=== PATIENT | female | born 1990 | race Hispanic/Latino ===

== ENCOUNTER 2016-12-22 21:48 | Emergency (ER) | payer OTHER ==
[2016-12-22 22:26] VITALS: BP 151/75; PULSE 74; RESP 16; TEMP 98; O2SAT 99
--- NOTE | 2016-12-22 22:31 | ED PDOC ---
Lower Extremity Pain/Injury Time Seen by Provider: 12/22/16 22:26 Chief Complaint (Nursing): Lower Extremity Problem/Injury Chief Complaint (Provider): right foot and ankle pain History Per: Patient Additional Complaint(s): 26-year-old female presents with pain to right foot and ankle status post injuring while playing soccer earlier today. Pain is worse with weight bearing. Patient took Aleve which helped somewhat with pain. No associated numbness or tingling to affected area. Past Medical History Reviewed: Historical Data, Nursing Documentation, Vital Signs Vital Signs: Last Vital Signs Temp 98.0 F 12/22/16 22:24 Pulse 74 12/22/16 22:24 Resp 16 12/22/16 22:24 BP 151/75 H 12/22/16 22:24 Pulse Ox 99 12/22/16 22:24 - Medical History PMH: No Chronic Diseases - Surgical History Surgical History: No Surg Hx - Family History Family History: States: No Known Family Hx - Living Arrangements Living Arrangements: With Friends/Others - Social History Current smoker - smoking cessation education provided: No Alcohol: Social Drugs: Denies - Allergies Allergies/Adverse Reactions: Allergies Allergy/AdvReac Type Severity Reaction Status Date / Time No Known Allergies Allergy Verified 12/22/16 22:22 Wells Criteria for PE - Wells Criteria for Pulmonary Embolism Clinical Signs and Symptoms of DVT: No P.E is #1 Diagnosis, or Equally Likely: No Heart Rate >100: No Immobilization at least 3 days;Surgery previous 4 weeks: No Previous, objectively diagnosed PE or DVT: No Hemoptysis: No Malignancy w/treatment within 6 months, or palliative: No Total Score: 0 Review of Systems ROS Statement: Except As Marked, All Systems Reviewed And Found Negative Musculoskeletal: Positive for: Foot Pain (right foot and ankle injury) Physical Exam - Reviewed Nursing Documentation Reviewed: Yes Vital Signs Reviewed: Yes - Physical Exam Appears: Positive for: Well, Non-toxic, No Acute Distress Skin: Negative for: Rash Eye Exam: Positive for: Normal appearance Extremity: Positive for: Other (Moderate swelling and tenderness right lateral malleolus, tenderness to left heel with mild swelling, palpable DP pulse, normal distal sensation, swelling or tenderness, full range of motion right hip and knee) Neurologic/Psych: Positive for: Alert, Oriented - ECG O2 Sat by Pulse Oximetry: 99 Pulse Ox Interpretation: Normal - Other Rad Right foot and ankle x-ray X-Ray: Interpreted by Me, Viewed By Me X-Ray Interpretation: no fx, no dis Medical Decision Making Medical Decision Makin-year-old with injury to right foot and ankle Plan: X-ray right foot and ankle Pain meds declined Patient given crutches. See procedure note. Advised NSAIDs, rest, ice and elevation. Patient was referred to automotive manufacturer for follow-up. Procedures - Splinting Location: right ankle Pre-Made Type: aircast Pre-Proc Neuro Vasc Exam: normal Post-Proc Neuro Vasc Exam: normal Disposition - Clinical Impression Clinical Impression: Ankle sprain - Patient ED Disposition Is Patient to be Admitted: No Counseled Patient/Family Regarding: Studies Performed, Diagnosis, Need For Followup - Disposition Referrals: Elton Gallegos DPM [Staff Provider] - Disposition: Routine/Home Disposition Time: 23:10 Condition: STABLE Additional Instructions: Ice, rest and elevate affected area. Take over the counter advil or aleve as needed for pain. Follow-up with automotive manufacturer for any persistent symptoms. Instructions: Ankle Stirrup Splint (ED), Ankle Sprain (ED) Forms: [employer] (Norwegian), [facility] ED School/Work Excuse
--- NOTE | 2016-12-23 10:00 | RAD ---
PROCEDURE: Right Ankle Radiographs. HISTORY: Trauma COMPARISON: None FINDINGS: BONES: Bone alignment and mineralization are normal. There is no acute displaced fracture or bone destruction. JOINTS: There is a small joint effusion. Ankle mortise maintained. Talar dome intact SOFT TISSUES: There is mild lateral soft tissue swelling. OTHER FINDINGS: None. IMPRESSION: Small joint effusion and mild lateral soft tissue swelling. No acute fracture or dislocation.
--- NOTE | 2016-12-23 10:24 | RAD ---
PROCEDURE: Right Foot Radiographs. HISTORY: trauma COMPARISON: None. FINDINGS: BONES: Normal. No fracture. JOINTS: Normal. SOFT TISSUES: Normal. OTHER FINDINGS: None. IMPRESSION: Normal right foot radiographs.
== END 2016-12-22 23:21 | disposition home or self-care (01) ==
LOC: H.ER 21:48
DX: S93.401A Sprain of unspecified ligament of right ankle, initial encounter (principal); X50.9XXA Other and unspecified overexertion or strenuous movements or postures, initial encounter; Y92.322 Soccer field as the place of occurrence of the external cause